=== PATIENT | male | born 1975 | race Caucasian/White ===

== ENCOUNTER → 2020-03-08 | Outpatient (CLI) | payer BC, OTHER | LOC: EXRD 09:42 | DX: K76.0 Fatty (change of) liver, not elsewhere classified (principal) | CPT/HCPCS: 76700 ==

== ENCOUNTER → 2021-05-02 | Outpatient (CLI) | payer BC | LOC: KOH-I 12:31 | DX: M54.2 Cervicalgia (principal) | CPT/HCPCS: 72040 ==

== ENCOUNTER → 2021-09-21 | Outpatient (CLI) | payer BC | LOC: KOH-I 08:52 | DX: K76.0 Fatty (change of) liver, not elsewhere classified (principal) | CPT/HCPCS: 76700 ==